=== PATIENT | female | born 1985 | race Two or more races ===

== ENCOUNTER 2023-01-04 09:03 | Outpatient (CLI) | payer OTHER | END 2023-01-04 11:04 | disposition home or self-care (01) | LOC: LAB 09:03 | DX: D64.9 Anemia, unspecified (principal); R73.9 Hyperglycemia, unspecified; N39.0 Urinary tract infection, site not specified; R94.6 Abnormal results of thyroid function studies; E78.2 Mixed hyperlipidemia; R70.0 Elevated erythrocyte sedimentation rate; E55.9 Vitamin D deficiency, unspecified; R80.9 Proteinuria, unspecified ==

== ENCOUNTER → 2023-01-25 09:15 | Outpatient (CLI) | payer OTHER | END | disposition home or self-care (01) | LOC: LAB 09:15 | DX: R70.0 Elevated erythrocyte sedimentation rate (principal) ==